=== PATIENT | female | born 1980 | race Caucasian/White ===

== ENCOUNTER → 2021-11-15 | Outpatient (CLI) | payer OTHER ==
--- NOTE | 2021-11-15 13:49 | RAD ---
EXAM: Neck sonogram. HISTORY: Posterior neck lump. TECHNIQUE: Sonographic imaging of the posterior neck at the site of palpable concern was performed. COMPARISON: None. FINDINGS: There is a circumscribed solid nonvascular lesion isoechoic to fat within the posterior nec k at the site of palpable concern measuring 5.0 x 2.9 x 1.0 cm, the appearance of which favors a harish gn lipoma. IMPRESSION: 5.0 cm suspected lipoma within the soft tissues of the posterior neck at the site of palp able concern. Continued clinical follow-up of palpable advised is recommended. Repeat examination can be performed if there is continuing concern or change in physical exam findings. Electronically signed by: Lakeshia Edmonds MD (11/15/2021 1:46 PM) [id number]
== END ==
LOC: US 12:56
PROVIDERS: ATTEND Nurse Practitioner Family
DX: R22.1 Localized swelling, mass and lump, neck (principal)
CPT/HCPCS: 76536